=== PATIENT | female | born 1980 | race Caucasian/White ===

== ENCOUNTER 2016-11-30 13:51 | Emergency (ER) | payer OTHER ==
[2016-11-30 14:39] VITALS: BP 115/70
--- NOTE | 2016-11-30 14:46 | UC ---
Respiratory Complaint HPI - HPI Summary HPI Summary: The patient comes in today for: 1. Sinus pressure behind right eye: Onset: 4 days ago. Palliative/provocative: Leaning forward makes it worse. Quality: Pressure. Region: Behind right eye. Severity: 05/20 Time: Constant. Associated symptoms: The patient states that she wants an antibiotic for this pain. She states that she has had "sinus" infection many times before which have presented like this before. Rhinitis: Green material. Upper tooth pain: None. Fevers: None Cough: Cold for a week. Previous treatment: Ceftin, She has tolerated doxycycline. Pain treatment: Tylenol only. Dizziness: She feels unsteady with closing her eyes. - History of Current Complaint Chief Complaint: UCGeneralIllness Stated Complaint: sinuses Time Seen by Provider: 11/30/16 14:40 Hx Obtained From: Patient Hx Last Menstrual Period: 11/28/16 ?: No - Allergies/Home Medications Allergies/Adverse Reactions: Allergies Allergy/AdvReac Type Severity Reaction Status Date / Time Azithromycin [From Zithromax] Allergy Severe GI pain Verified 11/30/16 14:39 Penicillins Allergy Severe Hives Verified 11/30/16 14:39 Sulfa Antibiotics Allergy Severe facial Verified 11/30/16 14:39 swelling Ciprofloxacin Allergy Swelling Verified 11/30/16 14:39 Of Face,Lips,& Throat PMH/Surg Hx/FS Hx/Imm Hx Previously Healthy: No - ADD Endocrine History Of: Denies: Diabetes, Thyroid Disease, Hyperthyroidism, Hypothyroidism, Dyslipidemia Cardiovascular History Of: Denies: Cardiac Disorders, Hypertension, Pacemaker/ICD, Myocardial Infarction , Congestive Heart Failure, Atrial Fibrillation, Deep Vein Thrombosis, Bleeding Disorders Respiratory History Of: Denies: COPD, Asthma, Bronchitis, Pneumonia, Pulmonary Embolism GI/ History Of: Reports: Ulcer Denies: Gastroesophageal Reflux, Gastrointestinal Bleed, Gall Bladder Disease , Kidney Stones, Diverticulitis, Renal Disease, Urosepsis Neurological History Of: Denies: TIA, CVA, Dementia, Seizures, Migraine Psychological History Of: Denies: Anxiety, Depression, Bipolar Disorder, Schizophrenia, Post Traumatic Stress Disorder Cancer History Of: Denies: Lung Cancer, Colorectal Cancer, Breast Cancer, Prostate Cancer, Cervical Cancer Other History Of: Negative For: HIV, Hepatitis B, Hepatitis C, Anticoagulant Therapy - Surgical History Surgical History: Yes Surgery Procedure, Year, and Place: sinus surgery 02/15/2014. gallbladder 1997. gastric bypass 2007. post traumatic rhinoplasty 1996. endoscopy - Family History Known Family History: Negative: Cardiac Disease, Hypertension - Social History Occupation: Employed Full-time Alcohol Use: Rare Alcohol Amount: 1 glass a wine weekly or less Substance Use Type: None Smoking Status (MU): Never Smoked Tobacco Review of Systems Constitutional: Negative Skin: Negative Eyes: Negative ENT: Nasal Discharge Respiratory: Negative Cardiovascular: Negative Gastrointestinal: Negative Genitourinary: Negative All Other Systems Reviewed And Are Negative: Yes Physical Exam Triage Information Reviewed: Yes Appearance: Well-Appearing, No Pain Distress, Well-Nourished Vital Signs: Initial Vital Signs Temp 100.3 F 11/30/16 14:34 Pulse 92 11/30/16 14:34 Resp 16 11/30/16 14:34 BP 115/70 11/30/16 14:34 Pulse Ox 100 11/30/16 14:34 Vital Signs Reviewed: Yes Eyes: Positive: Conjunctiva Clear. Negative: Discharge ENT: Positive: Hearing grossly normal, Other: - Right maxillary sinus tenderness to palpation.. Negative: Pharyngeal erythema, Nasal congestion, Nasal drainage, TM bulging, TM dull, TM red, Tonsillar swelling, Tonsillar exudate Dental: Negative: Gross Decay/Caries @, Dental Fracture @ Neck: Positive: Supple, Nontender, No Lymphadenopathy. Negative: Nuchal Rigidity Respiratory: Positive: Lungs clear, No respiratory distress, No accessory muscle use, Respiratory distress. Negative: Crackles, Wheezing Cardiovascular: Positive: RRR, No Murmur Abdomen Description: Positive: Nontender, No Organomegaly, Soft. Negative: Distended, Guarding Musculoskeletal: Positive: Strength Intact, ROM Intact Neurological: Positive: Alert, Muscle Tone Normal Psychological: Positive: Age Appropriate Behavior, Consolable Skin: Negative: rashes, breakdown UC Diagnostic Evaluation - Laboratory O2 Sat by Pulse Oximetry: 100 Respiratory Course/Dx - Differential Dx/Diagnosis Differential Diagnosis/HQI/PQRI: Bronchitis, Laryngitis, Sinusitis Provider Diagnoses: Right maxillary sinusitis, bacterial. Discharge - Discharge Plan Condition: Stable Disposition: HOME Patient Education Materials: Sinusitis (ED) Referrals: Flako Quesada [Primary Care Provider] - 1 Week (Please see your primary care provider in about a week to see how well you are doing. If you get worse, please be seen sooner.)
== END 2016-11-30 15:06 | disposition home or self-care (01) ==
LOC: UCCORT 13:51
DX: J32.0 Chronic maxillary sinusitis (principal); Z98.84 Bariatric surgery status; Z98.890 Other specified postprocedural states; Z88.0 Allergy status to penicillin; Z88.1 Allergy status to other antibiotic agents; Z88.2 Allergy status to sulfonamides
CPT/HCPCS: 99212; G0463

== ENCOUNTER 2017-04-17 16:45 | Emergency (ER) | payer SELFPAY ==
[2017-04-17 17:53] VITALS: BP 106/65
[2017-04-17] MEDS ORDERED: Cephalexin CAP* 500 MG PO ONE (18:12)
--- NOTE | 2017-04-17 18:15 | UC ---
Complaint Female HPI - HPI Summary HPI Summary: Patient is compliaing of dysruia and urgency with urination for the past few days. - History Of Current Complaint Chief Complaint: UCGU Stated Complaint: URINARY COMPLAINT Time Seen by Provider: 04/17/17 18:12 Hx Obtained From: Patient Hx Last Menstrual Period: 03/30/17 Onset/Duration: Sudden Onset, Lasting Days Timing: Constant Severity Initially: Mild Severity Currently: Moderate Character: Burning Aggravating Factor(s): Urination Associated Signs And Symptoms: Positive: Negative - Allergies/Home Medications Allergies/Adverse Reactions: Allergies Allergy/AdvReac Type Severity Reaction Status Date / Time Azithromycin [From Zithromax] Allergy Severe GI pain Verified 04/17/17 17:53 Penicillins Allergy Severe Hives Verified 04/17/17 17:53 Sulfa Antibiotics Allergy Severe facial Verified 04/17/17 17:53 swelling Ciprofloxacin Allergy Swelling Verified 04/17/17 17:53 Of Face,Lips,& Throat Ibuprofen AdvReac See Comment Verified 04/17/17 17:53 PMH/Surg Hx/FS Hx/Imm Hx Other History Of: Negative For: HIV, Hepatitis B, Hepatitis C, Anticoagulant Therapy - Surgical History Surgical History: Yes Surgery Procedure, Year, and Place: sinus surgery 02/15/2014. gallbladder 1997. gastric bypass 2007. post traumatic rhinoplasty 1996. endoscopy. D&C--2016 - Family History Known Family History: Positive: None Negative: Cardiac Disease, Hypertension - Social History Alcohol Use: Occasionally Alcohol Amount: 1 glass a wine weekly or less Substance Use Type: None Smoking Status (MU): Never Smoked Tobacco Review of Systems Constitutional: Negative Skin: Negative Eyes: Negative ENT: Negative Respiratory: Negative Cardiovascular: Negative Gastrointestinal: Negative Genitourinary: Dysuria, Frequency, Urgency Motor: Negative Neurovascular: Negative Musculoskeletal: Negative Neurological: Negative Psychological: Negative All Other Systems Reviewed And Are Negative: Yes Physical Exam Triage Information Reviewed: Yes Vital Signs: Initial Vital Signs Temp 98.4 F 04/17/17 17:47 Pulse 84 04/17/17 17:47 Resp 16 04/17/17 17:47 BP 106/65 04/17/17 17:47 Pulse Ox 100 04/17/17 17:47
[2017-04-17] MEDS ORDERED: Nitrofurantoin Macrocrystals* 100 MG CAP PO ONE (18:31)
[2017-04-17] MEDS ORDERED: Phenazopyridine TAB* 100 MG PO ONE (18:31)
--- NOTE | 2017-04-17 18:31 | UC ---
Complaint Female HPI - HPI Summary HPI Summary: Patient is compliaing of dysruia and urgency with urination for the past few days. - History Of Current Complaint Chief Complaint: UCGU Stated Complaint: URINARY COMPLAINT Time Seen by Provider: 04/17/17 18:12 Hx Obtained From: Patient Hx Last Menstrual Period: 03/30/17 ?: No Onset/Duration: Sudden Onset - yesterday, Worse Since - today. Timing: Constant Severity Initially: Mild Severity Currently: Moderate Character: Burning Aggravating Factor(s): Urination Alleviating Factor(s): Nothing Associated Signs And Symptoms: Negative: Fever, Vaginal Discharge, Nausea Related Hx: - 4, Para - 4 - Risk Factors Ectopic Risk Factor: Maternal Age ^ 30 Ovarian Torsion Risk Factor: Reproductive Age - Allergies/Home Medications Allergies/Adverse Reactions: Allergies Allergy/AdvReac Type Severity Reaction Status Date / Time Azithromycin [From Zithromax] Allergy Severe GI pain Verified 04/17/17 17:53 Penicillins Allergy Severe Hives Verified 04/17/17 17:53 Sulfa Antibiotics Allergy Severe facial Verified 04/17/17 17:53 swelling Ciprofloxacin Allergy Swelling Verified 04/17/17 17:53 Of Face,Lips,& Throat Ibuprofen AdvReac See Comment Verified 04/17/17 17:53 PMH/Surg Hx/FS Hx/Imm Hx GI/ History: Gastroesophageal Reflux Other History Of: Negative For: HIV, Hepatitis B, Hepatitis C, Anticoagulant Therapy - Surgical History Surgical History: Yes Surgery Procedure, Year, and Place: sinus surgery 02/15/2014. gallbladder 1997. gastric bypass 2007. post traumatic rhinoplasty 1996. endoscopy. D&C--2016 - Family History Known Family History: Positive: None Negative: Cardiac Disease, Hypertension - Social History Alcohol Use: Occasionally Alcohol Amount: 1 glass a wine weekly or less Substance Use Type: None Smoking Status (MU): Never Smoked Tobacco Have You Smoked in the Last Year: No Review of Systems Genitourinary: Dysuria, Hematuria, Frequency, Urgency All Other Systems Reviewed And Are Negative: Yes Physical Exam Triage Information Reviewed: Yes Appearance: Well-Appearing, No Pain Distress, Well-Nourished Vital Signs: Initial Vital Signs Temp 98.4 F 04/17/17 17:47 Pulse 84 04/17/17 17:47 Resp 16 04/17/17 17:47 BP 106/65 04/17/17 17:47 Pulse Ox 100 04/17/17 17:47 Vital Signs Reviewed: Yes Eyes: Positive: Conjunctiva Clear Neck exam: Normal Respiratory Exam: Normal Cardiovascular Exam: Normal Abdomen Description: Positive: Nontender, No Organomegaly, Soft. Negative: CVA Tenderness (R), CVA Tenderness (L) Musculoskeletal Exam: Normal Neurological Exam: Normal Psychological Exam: Normal Skin Exam: Normal Complaint Female Dx - Differential Dx/Diagnosis Differential Diagnosis/HQI/PQRI: Ovarian Cyst, Renal Colic, Urinary Tract Infection Provider Diagnoses: Acute hemorrhagic cystitis Discharge - Discharge Plan Condition: Stable Disposition: HOME Prescriptions: Nitrofurantoin Monohyd Macro [Macrobid] 100 mg PO BID #14 cap Phenazopyridine 200 mg (NF) [Pyridium 200 MG tab] 200 mg PO TID PRN #6 tab PRN Reason: UTI Symptoms Patient Education Materials: Urinary Tract Infection in Women (ED), Phenazopyridine (By mouth), Nitrofurantoin Combination (By mouth)
[2017-04-17] MEDS ORDERED: Nitrofurantoin Macrocrystals* 50 MG CAP PO ONE (18:52)
== END 2017-04-17 18:58 | disposition home or self-care (01) ==
LOC: UCCORT 16:45
DX: N30.01 Acute cystitis with hematuria (principal); Z88.4 Allergy status to anesthetic agent; Z88.1 Allergy status to other antibiotic agents; Z88.0 Allergy status to penicillin; Z88.2 Allergy status to sulfonamides
CPT/HCPCS: 81003; 87086; 99212; A9270-GY; G0463

== ENCOUNTER 2017-09-25 13:33 | Emergency (ER) | payer OTHER ==
--- NOTE | 2017-09-25 13:48 | UC ---
Throat Pain/Nasal Atilio HPI - HPI Summary HPI Summary: Per [employer] converter "sinus pressure,congestion, low grade temp and cold sx over 1 week ". She has had 2 significant sinus surgeries. she admits she waited too longt o come in. sx x 2wks. + severe pressure. unable to take nsaids b/c GI surgery. has taken doxy before for 10 days w/ good relief. she does feel she needs prednisone. no cough, no wheezing. she was told that she needs another surgery but she does not wish to do so at this time. - History of Current Complaint Chief Complaint: UCGeneralIllness Stated Complaint: SINUS,COLD SYMPTOMS Time Seen by Provider: 09/25/17 13:45 Hx Last Menstrual Period: 09/23/17 - Allergies/Home Medications Allergies/Adverse Reactions: Allergies Allergy/AdvReac Type Severity Reaction Status Date / Time Azithromycin [From Zithromax] Allergy Severe GI pain Verified 09/25/17 13:42 Penicillins Allergy Severe Hives Verified 09/25/17 13:42 Sulfa Antibiotics Allergy Severe facial Verified 09/25/17 13:42 swelling Ciprofloxacin Allergy Swelling Verified 09/25/17 13:42 Of Face,Lips,& Throat Ibuprofen AdvReac See Comment Verified 09/25/17 13:42 PMH/Surg Hx/FS Hx/Imm Hx Previously Healthy: Yes Other History Of: Negative For: HIV, Hepatitis B, Hepatitis C, Anticoagulant Therapy - Surgical History Surgical History: Yes Surgery Procedure, Year, and Place: sinus surgery 02/15/2014. gallbladder 1997. gastric bypass 2007. post traumatic rhinoplasty 1996. endoscopy. D&C--2016 - Family History Known Family History: Positive: None Negative: Cardiac Disease, Hypertension - Social History Alcohol Use: Occasionally Alcohol Amount: 1 glass a wine weekly or less Substance Use Type: None Smoking Status (MU): Never Smoked Tobacco Have You Smoked in the Last Year: No - Immunization History Most Recent Influenza Vaccination: does not get Review of Systems Constitutional: Negative Skin: Negative Eyes: Negative ENT: Sinus Pain/Tenderness Respiratory: Negative Cardiovascular: Negative Gastrointestinal: Negative Genitourinary: Negative Motor: Negative Neurovascular: Negative Musculoskeletal: Negative Neurological: Negative Psychological: Negative Is Patient Immunocompromised?: No All Other Systems Reviewed And Are Negative: Yes Physical Exam Triage Information Reviewed: Yes Appearance: Well-Nourished, Pain Distress Vital Signs: Initial Vital Signs Temp 99.2 F 09/25/17 13:38 Pulse 100 09/25/17 13:38 Resp 18 09/25/17 13:38 BP 117/62 09/25/17 13:38 Pulse Ox 99 09/25/17 13:38 Vital Signs Reviewed: Yes Eye Exam: Normal ENT: Positive: Pharynx normal, Nasal congestion, Nasal drainage, TMs normal, Sinus tenderness - significant b/l maxillary. + swelling under b/l eyes. Dental Exam: Normal Neck exam: Normal Neck: Positive: Supple, Nontender, No Lymphadenopathy Respiratory Exam: Normal Respiratory: Positive: Chest non-tender, Lungs clear Cardiovascular Exam: Normal Cardiovascular: Positive: RRR, No Murmur Abdomen Description: Positive: Nontender, Soft Musculoskeletal Exam: Normal Neurological Exam: Normal Psychological Exam: Normal Skin Exam: Normal Throat Pain/Nasal Course/Dx - Differential Dx/Diagnosis Differential Diagnosis/HQI/PQRI: Pharyngitis, Sinusitis, URI Provider Diagnoses: sinusitis Discharge - Discharge Plan Condition: Stable Disposition: HOME Prescriptions: Doxycycline (Monohydrate) [Doxycycline Monohydrate] 100 mg PO BID #20 cap Fluconazole [Diflucan] 150 mg PO ONCE #1 tab Methylprednisolone [Medrol Dosepak 4 MG*] 4 mg PO DAILY #1 shaheed Patient Education Materials: Sinusitis (ED) Referrals: Flako Quesada [Primary Care Provider] - 3 Days Additional Instructions: -Make sure to take a probiotic daily while on antibiotics to help prevent a potential complication of antibiotic use called c diff. Some well known brands that can be found OTC are [email or web address], [employer] and [employer]. Make sure to complete the entire prescription unless advised otherwise by your health care provider. -We discussed risks of prednisone including but not limited to anxiety, agitation, insomnia, GI upset, elevated blood pressures and blood sugar readings , adrenal crisis and avascular necrosis of the hip.
[2017-09-25 13:52] VITALS: BP 117/62
== END 2017-09-25 14:16 | disposition home or self-care (01) ==
LOC: UCCORT 13:33
DX: J32.9 Chronic sinusitis, unspecified (principal)
CPT/HCPCS: 99212; G0463

== ENCOUNTER 2018-04-28 21:14 | Emergency (ER) | payer OTHER ==
--- NOTE | 2018-04-28 21:23 | UC ---
Skin Complaint HPI - HPI Summary HPI Summary: 37 yo female presents with groin rash. She tells me that about 3 weeks ago she shaved her perineum and a few days later began to develop red pustules that felt like "pin pricks". She applied vagisil and petroleum jelly which caused swelling and redness to the area. She became frustrated and shaved her entire pubic hair. Now has these similar red pustules all about her groin region and is painful and fountain. Denies vaginal odor, discharge, dysuria, fever, or chills. - History of Current Complaint Chief Complaint: UCSkin Time Seen by Provider: 04/28/18 21:23 Stated Complaint: SKIN COMPLAINT Hx Obtained From: Patient Hx Last Menstrual Period: 09/23/17 Onset/Duration: Gradual Onset Skin Exposure Onset/Duration: Days Ago Onset Severity: Moderate Current Severity: Moderate Pain Intensity: 6 Pain Scale Used: 0-10 Numeric - Allergy/Home Medications Allergies/Adverse Reactions: Allergies Allergy/AdvReac Type Severity Reaction Status Date / Time azithromycin Allergy Severe GI Upset Verified 04/28/18 21:23 Penicillins Allergy Severe Hives Verified 04/28/18 21:24 ciprofloxacin Allergy Swelling Verified 04/28/18 21:23 Of Face,Lips,& Throat Sulfa (Sulfonamide Allergy Swelling Verified 04/28/18 21:23 Antibiotics) Of Face,Lips,& Throat Home Medications: Home Medications Amphetamine MIXED SALTS TAB* [Adderall TAB*] 25 mg DAILY 04/28/18 [History Confirmed 04/28/18] Lysine 1 tab DAILY 04/28/18 [History Confirmed 04/28/18] Pantoprazole Sodium [Protonix] 1 tab BID 04/28/18 [History Confirmed 04/28/18] Review of Systems Constitutional: Negative Skin: Rash Respiratory: Negative Cardiovascular: Negative Gastrointestinal: Negative Genitourinary: Vaginal/Penile Itching Motor: Negative Neurological: Negative Psychological: Negative All Other Systems Reviewed And Are Negative: Yes PMH/Surg Hx/FS Hx/Imm Hx - Additional Past Medical History Additional PMH: ADHD GI/ History: Gastroesophageal Reflux Other History Of: Negative For: HIV, Hepatitis B, Hepatitis C, Anticoagulant Therapy - Surgical History Surgical History: Yes Surgery Procedure, Year, and Place: sinus surgery 02/15/2014. gallbladder 1997. gastric bypass 2007. post traumatic rhinoplasty 1996. endoscopy. D&C--2016 - Family History Known Family History: Positive: None Negative: Cardiac Disease, Hypertension - Social History Occupation: Employed Full-time Lives: With Family Alcohol Use: Occasionally Alcohol Amount: 1 glass a wine weekly or less Substance Use Type: None Smoking Status (MU): Never Smoked Tobacco Have You Smoked in the Last Year: No - Immunization History Most Recent Influenza Vaccination: does not get Physical Exam - Summary Physical Exam Summary: GENERAL: NAD. WDWN. No pain distress. SKIN: See exam NECK: Supple. Nontender. No lymphadenopathy. CHEST: No accessory muscle use. Breathing comfortably and in no distress. CV: Pulses intact NEURO: Alert. CN II-XII grossly intact. PSYCH: Age appropriate behavior. Triage Information Reviewed: Yes Vital Signs: Vital Signs: Temp Pulse Resp BP Pulse Ox 99.5 F 87 18 117/70 98 04/28/18 21:25 04/28/18 21:25 04/28/18 21:25 04/28/18 21:25 04/28/18 21:25 Pelvic Exam: Positive: Other - External exam shows scattered 1-2mm mildly erythematous pustules that are mildly TTP extending from the mons pubis to the perineum. No drainage, streaking, or abscess appreciated. Assisted by Paola WILSON. Negative: Discharge, Mass, Ulcers Course/Dx - Course Course Of Treatment: Exam and history are consisted with folliculitis. Advised to stop applying OTC creams/lotions and will start her with Keflex and topical clindamycin. F/u if symptoms worsen or persist. - Diagnoses Provider Diagnoses: Folliculitis Discharge - Sign-Out/Discharge Documenting (check all that apply): Patient Departure - Discharge Plan Condition: Stable Disposition: HOME Prescriptions: Cephalexin CAP* [Keflex CAP*] 500 mg PO BID #14 cap Clindamycin 1% TOPICAL(NF) [Cleocin-T 1% TOPICAL(NF)] 1 % TOPICAL BID #1 tube Fluconazole 150 MG (NF) [Diflucan 150 mg (NF)] 150 mg PO ONCE #1 tab Patient Education Materials: Folliculitis (ED) Referrals: Flako Quesada [Primary Care Provider] - Additional Instructions: If you develop a fever, shortness of breath, chest pain, new or worsening symptoms - please call your PCP or go to the ED. - Billing Disposition and Condition Condition: STABLE Disposition: Home
[2018-04-28 21:51] VITALS: BP 117/70
== END 2018-04-28 22:03 | disposition home or self-care (01) ==
LOC: UCCORT 21:14
DX: L73.9 Follicular disorder, unspecified (principal)
CPT/HCPCS: 99212; G0463

== ENCOUNTER 2019-02-14 17:54 | Emergency (ER) | payer OTHER ==
[2019-02-14 18:22] VITALS: BP 131/72
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
--- NOTE | 2019-02-15 15:19 | UC ---
- Progress Note Progress Note: Radiologist reading of right rib x-rays and chest x-ray from February 14, 2019 is no fracture or pneumothorax. Provider diagnosis from the same date is right rib pain therefore there is no discrepancy. Course/Dx - Diagnoses Provider Diagnoses: Rib pain on right side Discharge - Sign-Out/Discharge Documenting (check all that apply): Patient Departure All imaging exams completed and their final reports reviewed: Yes - Discharge Plan Condition: Stable Disposition: HOME Patient Education Materials: Rib Contusion (ED) Referrals: Flako Quesada [Primary Care Provider] - If Needed - Billing Disposition and Condition Condition: STABLE Disposition: Home
== END 2019-02-14 19:18 | disposition home or self-care (01) ==
LOC: UCCORT 17:54
DX: R07.81 Pleurodynia (principal); Z88.0 Allergy status to penicillin; Z88.1 Allergy status to other antibiotic agents; Z88.2 Allergy status to sulfonamides
CPT/HCPCS: 99211; G0463

== ENCOUNTER 2019-09-20 12:02 | Emergency (ER) | payer OTHER ==
[2019-09-20 12:20] VITALS: BP 104/63
--- NOTE | 2019-09-20 12:32 | UC ---
Throat Pain/Nasal Atilio HPI - HPI Summary HPI Summary: sinus pain and pressure x 10 days nasal congestion / drainage, pnd, yellow to green nasal discharge, dry cough , no fever, + chills - History of Current Complaint Chief Complaint: UCRespiratory Stated Complaint: SINUS COMPLAINT Time Seen by Provider: 09/20/19 12:12 Hx Obtained From: Patient Hx Last Menstrual Period: 01/29/19 ?: Yes Onset/Duration: Gradual Onset, Lasting Days - 10, Still Present Severity: Moderate Pain Intensity: 7 Cough: Nonproductive Associated Signs & Symptoms: Positive: Sinus Discomfort, Nasal Discharge. Negative: Fever, Vomiting, Rash - Allergies/Home Medications Allergies/Adverse Reactions: Allergies Allergy/AdvReac Type Severity Reaction Status Date / Time azithromycin Allergy Severe GI Upset Verified 09/20/19 12:15 Penicillins Allergy Severe Hives Verified 09/20/19 12:15 ciprofloxacin Allergy Swelling Verified 09/20/19 12:15 Of Face,Lips,& Throat Sulfa (Sulfonamide Allergy Swelling Verified 09/20/19 12:15 Antibiotics) Of Face,Lips,& Throat Home Medications: Home Medications Folic Acid/B Complex C No.17 [Dexifol 5 mg] 1 tab PO DAILY 09/20/19 [History Confirmed 09/20/19] Pantoprazole TAB * [Protonix TAB*] 40 mg PO BID 09/20/19 [History Confirmed 08/29] Vitamin TAB* 1 tab PO DAILY 09/20/19 [History Confirmed 09/20/19] PMH/Surg Hx/FS Hx/Imm Hx - Additional Past Medical History Additional PMH: ADHD , Anemia GI/ History: Ulcer Other History Of: Negative For: HIV, Hepatitis B, Hepatitis C, Anticoagulant Therapy - Surgical History Surgical History: Yes Surgery Procedure, Year, and Place: sinus surgery 02/15/2014. gallbladder 1997. gastric bypass 2007. post traumatic rhinoplasty 1996. endoscopy. D&C--2016 - Family History Known Family History: Positive: None Negative: Cardiac Disease, Hypertension - Social History Alcohol Use: None Alcohol Amount: 1 glass a wine weekly or less Substance Use Type: None Smoking Status (MU): Never Smoked Tobacco Have You Smoked in the Last Year: No - Immunization History Most Recent Influenza Vaccination: does not get Vaccination Up to Date: Yes Review of Systems All Other Systems Reviewed And Are Negative: Yes Constitutional: Positive: Negative. Negative: Fever ENT: Positive: Sore Throat, Ear Ache, Nasal Discharge, Sinus Congestion, Sinus Pain/Tenderness Respiratory: Positive: Cough Is Patient Immunocompromised?: No Physical Exam Triage Information Reviewed: Yes Appearance: Well-Appearing, No Pain Distress, Well-Nourished Vital Signs: Initial Vital Signs Temp 98.2 F 09/20/19 12:13 Pulse 80 09/20/19 12:13 Resp 16 09/20/19 12:13 BP 104/63 09/20/19 12:13 Pulse Ox 98 09/20/19 12:13 Vital Signs Reviewed: Yes Eye Exam: Normal Eyes: Positive: Conjunctiva Clear ENT: Positive: Normal ENT inspection, Hearing grossly normal, Pharyngeal erythema, Nasal drainage, TMs normal, Sinus tenderness. Negative: TM bulging, TM dull, TM red, Tonsillar swelling, Tonsillar exudate Neck: Positive: Supple, Nontender, No Lymphadenopathy Respiratory: Positive: Chest non-tender, Lungs clear, Normal breath sounds Cardiovascular: Positive: RRR, No Murmur, Pulses Normal Skin Exam: Normal Throat Pain/Nasal Course/Dx - Differential Dx/Diagnosis Provider Diagnosis: Sinusitis Discharge ED - Sign-Out/Discharge Documenting (check all that apply): Patient Departure All imaging exams completed and their final reports reviewed: No Studies - Discharge Plan Condition: Stable Disposition: HOME Prescriptions: Cephalexin CAP* [Keflex CAP*] 500 mg PO TID #21 cap Patient Education Materials: Sinusitis (ED) Referrals: Franklin Suero MD [Primary Care Provider] - - Billing Disposition and Condition Condition: STABLE Disposition: Home
== END 2019-09-20 12:36 | disposition home or self-care (01) ==
LOC: UCCORT 12:02
DX: J32.9 Chronic sinusitis, unspecified (principal); J02.9 Acute pharyngitis, unspecified; D64.9 Anemia, unspecified; H92.09 Otalgia, unspecified ear; Z88.0 Allergy status to penicillin; Z88.1 Allergy status to other antibiotic agents; Z88.2 Allergy status to sulfonamides; Z79.899 Other long term (current) drug therapy
CPT/HCPCS: 99212; G0463